=== PATIENT | female | born 1955 | race Caucasian/White ===

== ENCOUNTER 2019-02-28 14:55 | Outpatient (CLI) | payer BC, OTHER ==
--- NOTE | 2019-02-28 16:49 | MRI ---
RIGHT WRIST MRI WITHOUT IV CONTRAST: 02/28/19 HISTORY: History of wrist fracture, avascular necrosis, wrist pain. FINDINGS: Multiplanar, multisequence MRI examination of the wrist is performed. There is slight deformity of th e distal radius, evidence for residual from an old distal radial fracture. Positive ulnar variance. P rominent tear involving the central triangular fibrocartilage complex. Several small interosseous cys tic changes including the lunate bone, navicular bone, and capitate bones. No evidence for scapholuna te ligament injury or disassociation. No abnormal marrow signal to suggest avascular necrosis. There is some minimal arthrosis and degenerative changes including the trapezium and first metacarpal joint and hamate fifth metacarpal joint. IMPRESSION: 1. Evidence for an irregular tear of the central triangular fibrocartilage complex with some ass ociated positive ulnar variance. 2. Mild deformity of the distal radius, evidence for residual from a healed fracture. 3. No evidence for avascular necrosis. 4. No evidence for scapholunate disassociation or scapholunate ligament tear. 5. Mild degenerative changes. POS: [facility]
== END 2019-02-28 14:56 | disposition home or self-care (01) ==
LOC: TBSIIMAG 14:55
PROVIDERS: ATTEND Orthopaedic Surgery Hand Surgery
DX: M87.00 Idiopathic aseptic necrosis of unspecified bone (principal); S61.511A Laceration without foreign body of right wrist, initial encounter; S52.91XS Unspecified fracture of right forearm, sequela; M19.90 Unspecified osteoarthritis, unspecified site

== ENCOUNTER 2020-08-24 15:00 | Outpatient (CLI) | payer BC, OTHER ==
--- NOTE | 2020-08-24 15:45 | BD ---
BONE DENSITOMETRY: Date: 08/24/2020 HISTORY: Postmenopausal screening. FINDINGS: Lumbar Spine: BMD (g/cm2) L1 0.855 T-Score: -1.2 L2 0.827 T-Score: -1.8 L3 0.874 T-Score: -1.9 L4 0.937 T-Score: -1.1 Total 0.877 T-Score: -1.5 Left Femoral Neck: 0.673 T-Score: -1.6 Total Femur: 0.766 T-Score: -1.4 IMPRESSION: Bone mineral density of the lumbar spine and femoral neck both indicate osteopenia. 10 YEAR FRACTURE RISK: Major osteoporotic fracture: 14% Hip fracture: 1.5% POS: AGW
== END 2020-08-24 15:01 | disposition home or self-care (01) ==
LOC: BICMAMMO 15:00
PROVIDERS: ATTEND Internal Medicine Endocrinology, Diabetes & Metabolism
DX: M81.0 Age-related osteoporosis without current pathological fracture (principal); M85.89 Other specified disorders of bone density and structure, multiple sites
CPT/HCPCS: 77080